=== PATIENT | female | born 1950 | race Caucasian/White ===

== ENCOUNTER → 2018-03-02 09:54 | Outpatient (CLI) | payer MEDICARE, BC ==
[~2018-03-02 09:54] MED LIST: CENTRUM SILVER1 EAC3 PO; CHONDROITIN PO; FLUTICASONE PRO16 GM NASAL; GLUCOSAMINE HC500 MG PO; MAG-OXIDE400 MG PO; MAXALT10 MG PO; OMEGA-3100 MG PO; POTASSIUM99 M1 PO; SINGULAIR10 MG PO; TIROSINT13 MCG PO; VITAMIN B-121000 MCG PO; VITAMIN D31000 UNI2 PO
== END | disposition home or self-care (01) ==
LOC: D.MRI 09:54
DX: M25.561 Pain in right knee (principal)

== ENCOUNTER 2018-03-17 06:51 | Day surgery (SDC) | payer MEDICARE, BC ==
[~2018-03-17] VITALS: Ht 152.4 cm; Wt 54.4 kg
--- NOTE | ~2018-03-17 | OP ---
PATIENT NAME: ZINA SOLER MEDICAL RECORD: [id number] :50 LOCATION:[place] ADMISSION DATE: SURGEON: FRACISCO RENTERIA DO DATE OF OPERATION: 03/17/2018 PROCEDURE PERFORMED: Right knee arthroscopy with partial medial meniscectomy. PREOPERATIVE DIAGNOSIS: Right knee medial meniscal tear. 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 INDICATIONS: Ms. Soler is a 67-year-old female who has had right knee pain for quite some time. She has been dealing with it. She does exercise daily, but has been starting to be more painful to her with twisting and catching. We got an MRI, which showed a meniscal tear in the posterior horn and it also showed some loss of cartilage. She had x-rays done too, which showed some medial joint line narrowing, however, was not severe [id number]-[id number]. She was informed of the risks and benefits of procedure and the fact that the knee scope may not make her all the way better due to her underlying arthritis. She was understanding to that, but we could hopefully get her meniscal symptoms to go away. She was informed of the risks and benefits of the procedure including infection, bleeding, damage to nerve or vessels, need for further surgery and she was consented for the procedure. SURGEON: Fracisco Renteria DO DESCRIPTION OF THE PROCEDURE: The patient was taken to the operative suite, laid in supine position. Right lower extremity was prepped and draped in sterile fashion. A timeout was performed, everyone was in agreement with the correct side, site, and patient. The patient was given 2 grams Ancef preoperatively. Once this was done, the timeout was performed. The procedure began with an 11-blade scalpel and then over the medial portal, which had been injected prior to this with 0.5% Marcaine with epinephrine, 3 mL lateral and medial where portal sites would be. After the portal site was established with an 11-blade scalpel, a trocar was entered to the knee and the knee was inspected and no loose bodies were seen in the suprapatellar pouch; however, the grade III chondromalacia was noted on the lateral side of the patella. No loose bodies seen in the lateral or medial gutters. The medial compartment was then entered and the knee was flexed down. Medial portal was established with an 18-gauge spinal needle and an 11-blade scalpel. Trocar was entered near the end of the probe. The meniscus was probed and seen to have a tear in the posterior horn. A biter was used to bite out the tear and a shaver to take out the pieces and chew back to a stable position. The chondromalacia was noted on the medial femoral condyle and the tibial plateau at that time. Any loose bodies of the cartilage were removed with the shaver at that time. The ACL was then probed with a probe and seemed to be taut. The lateral compartment was then inspected. The leg was in [id number]-[id number] and no tears were seen in the lateral meniscus. The scope was then entered into the suprapatellar pouch to inspect for loose bodies and none were seen there. There was no chondromalacia seen in the trochlea; however, there was again noted grade III chondromalacia of the patella on the lateral facet. The water was turned off and the suction was turned on. The scope was removed from the knee and the portal sites were closed with 3-0 Monocryl in an inverted interrupted fashion. Steri-Strips, Adaptic and Telfa OPERATIVE REPORT [id number] DORATHY,ZINA DENISE and Tegaderm was placed on the knee. ABD, Webril, and Mario Alberto wrap were then placed on the RUCHI hose stocking was placed up to the knee. The patient was awakened and taken to recovery in stable condition. ESTIMATED BLOOD LOSS: Minimal. COMPLICATIONS: None. TRANSINT:[id number] Voice Confirmation ID: [id number] DOCUMENT ID: [id number] FRACISCO RENTERIA DO at 0921 CC: [id number] DICTATION DATE: 03/17/18 1150 WIPING CLOTH CUTTER: 03/17/181940 [facility] 03/17/18 [facility] [address] [place] [address]
[2018-03-17 07:10] LABS: HEMATOCRIT 43.4 % (36.0-48.0); HEMOGLOBIN 14.6 g/dL (12-16); MCH 31.8 pg (26.0-34.0); MCHC 33.6 g/dL (31.0-37.0); MCV 94.6 fL (80.0-100.0); MEAN PLATELET VOLUME 10.3 fL (7.4-10.4); RBC 4.59 10x6/uL (4.00-5.40); RDW 12.3 % (11.5-14.5)
[2018-03-17 08:24] VITALS: BP 130/67; Ht 152.4 cm; Wt 54.4 kg
[2018-03-17] MEDS ORDERED: HYDROCODON-ACE1 EAC7 PO (11:39)
== END 2018-03-17 14:03 | disposition home or self-care (01) ==
LOC: D.PAN 06:51 → D.OPS 09:45 → D.PAN 09:45
PROVIDERS: Anesthesiology
DX: S83.241A Other tear of medial meniscus, current injury, right knee, initial encounter (principal); X58.XXXA Exposure to other specified factors, initial encounter; M22.41 Chondromalacia patellae, right knee; Z87.891 Personal history of nicotine dependence

== ENCOUNTER → 2019-01-04 11:55 | Outpatient (CLI) | payer MEDICARE, BC ==
[2018-03-17 08:24] VITALS: BMI 23.4
[~2019-01-04 11:55] MED LIST changes: +ELIQUIS2.5 MG PO; +HYDROCODON-ACE1 EAC7 PO; +KEFLEX500 MG PO; +LUTEIN20 MG PO; +NEXIUM20 MG PO; +ZOFRAN ODT4 MG/UDTAB PO
== END | disposition home or self-care (01) ==
LOC: D.LABREF 11:55
PROVIDERS: ATTEND Orthopaedic Surgery
DX: M17.11 Unilateral primary osteoarthritis, right knee (principal); Z11.8 Encounter for screening for other infectious and parasitic diseases

== ENCOUNTER 2019-01-04 16:30 | Inpatient (IN) | payer MEDICARE, BC ==
[~2019-01-04] VITALS: Ht 152.4 cm; Wt 55.9 kg
[~2019-01-04 16:30] MED LIST changes: -ELIQUIS2.5 MG PO; -KEFLEX500 MG PO; -LUTEIN20 MG PO; -NEXIUM20 MG PO; -ZOFRAN ODT4 MG/UDTAB PO
[2019-01-09] MEDS ORDERED: LUTEIN20 MG PO (12:37)
[2019-01-09] MEDS ORDERED: NEXIUM20 MG PO (12:51)
[2019-01-10 08:59] LABS: CALC OSMOLALITY 282 mosm/kg (275-300); CALCIUM 8.8 mg/dL (8.5-10.1); CARBON DIOXIDE 31.4 mmol/L (21.0-32.0); CHLORIDE - SERUM 103 mmol/L (98-107); CREATININE - SERUM 0.8 mg/dL (0.6-1.3); GLUCOSE 95 mg/dL (74-106); POTASSIUM - SERUM 4.2 mmol/L (3.5-5.1); SODIUM 141 mmol/L (136-145); UREA NITROGEN 19 mg/dL (7-18); eGFR NON AFRICAN AMERICAN 75 mL/min (90-120)
[2019-01-10 09:00] LABS: APTT 26.8 SECONDS (22.8-39.4); INR 0.99 (0.85-1.17); PROTIME 12.6 SECONDS (11.6-15.0)
[2019-01-10 09:17] LABS: APPEARANCE CLEAR (CLEAR); BILIRUBIN NEGATIVE (NEGATIVE); COLOR YELLOW (YELLOW); GLUCOSE NEGATIVE (NEGATIVE); KETONE NEGATIVE (NEGATIVE); NITRITE NEGATIVE (NEGATIVE); PROTEIN NEGATIVE (NEGATIVE); SPECIFIC GRAVITY 1.005 (1.005-1.020); UROBILINOGEN NORMAL (NORMAL)
[2019-01-10 09:50] LABS: BASOPHILS 0.4 % (0-2); EOSINOPHILS 1.4 % (0-7); HEMATOCRIT 41.9 % (36.0-48.0); HEMOGLOBIN 14.7 g/dL (12-16); LYMPHOCYTES 29.5 % (15-50); MCH 32.5 pg (26.0-34.0); MCHC 35.1 g/dL (31.0-37.0); MCV 92.5 fL (80.0-100.0); MEAN PLATELET VOLUME 10.9 fL (7.4-10.4); MONOCYTES 8.5 % (2-11); NEUTROPHILS 60.2 % (40-80); PLATELET COUNT 201 10x3/uL (130-400); RBC 4.53 10x6/uL (4.00-5.40); RDW 12.5 % (11.5-14.5); WBC 4.8 10x3/uL (4.8-10.8)
[2019-01-16] VITALS (10 sets, daily range): BP systolic 106–142; BP diastolic 42–72; Ht 152.4 cm; Wt 55.9 kg
--- NOTE | 2019-01-16 09:27 | NUR ---
0982 DR. DEXTER GARCIAS.
--- NOTE | 2019-01-16 14:37 | NUR ---
PLAZMA BLADE USED 6 AND 8 ELECTRODE PAD PLACED ON LEFT THIGH KNEE WAS IRIGATED WITH BACTISURE ROOM TRAFIC WAS KEPT TO MINUMEM
[2019-01-17 01:11] VITALS: BP 101/52
--- NOTE | 2019-01-17 01:23 | NUR ---
PT RESTING IN BED. EYES CLOSED. NO SIGNS OF DISTRESS. BREATHING EVEN AND UNALABORED. IV SITE LT FA DRESSING CLEAN DRY AND ITNACT. NO SIGNS OF INFECTION. BOWEL SOUNDS ACTIVE. RT KNEE DRESSING CLEAN DRY AND INTACT. WILL CONTINUE PLAN OF CARE. CALL LIGHT IN REACH. BED LOWERED AND LOCKED. BED RAILS UP X2.
--- NOTE | 2019-01-17 04:23 | NUR ---
I have reviewed this patient and I concur with the Shift Assessment completed by the Licensed Practical Nurse today this shift.
[2019-01-17 05:18] VITALS: BP 95/54
[2019-01-17 07:12] LABS: HEMATOCRIT 37.7 % (36.0-48.0); HEMOGLOBIN 12.8 g/dL (12-16); MCH 31.2 pg (26.0-34.0); MEAN PLATELET VOLUME 11.1 fL (7.4-10.4); RBC 4.1 10x6/uL (4.00-5.40); RDW 12.4 % (11.5-14.5); WBC 7.3 10x3/uL (4.8-10.8)
--- NOTE | 2019-01-17 07:51 | NUR ---
PT IS RESTING IN BED WITH EYES OPEN. RESPIRATIONS ARE EVEN AND UNLABORED. CPM MACHINE IS ON. PT DENIES PRESENCE OF PAIN. PT REPORTS FEELING TO RLE. DENIES PRESENCE OF NUMBNESS/TINGLING. PT IS AAO X4. BED IS IN THE LOWEST POSITION. CALL LIGHT AND BEDSIDE TABLE ARE WITHIN REACH. PT DENIES PRESENCE OF N/V. PT DENIES FURTHER NEEDS. WILL CONT TO MONITOR.
--- NOTE | 2019-01-17 08:48 | OP ---
PATIENT NAME: ZINA SOLER MEDICAL RECORD: [id number] :50 LOCATION:[id number] ADMISSION DATE:01/16/19 SURGEON: FRACISCO RENTERIA DO DATE OF OPERATION: 01/16/2019 PROCEDURE PERFORMED: Right total knee arthroplasty. PREOPERATIVE DIAGNOSIS: Right knee osteoarthritis. POSTOPERATIVE DIAGNOSIS: Right knee osteoarthritis. INDICATIONS: Ms. Soler is a 68-year-old female who has had right knee pain and arthritis for quite some time. She had knee scope done a year or so ago, which demonstrated the knee arthritis. She has been wearing an professional nursing tutor brace and it did help to a point, however, she was tired of dealing with the pain and affecting her activities of daily living and wanted something done. She was aware of the risks including infection, bleeding, damage to nerves and vessels, blood clots, even , fracture, need for further surgery, failure of implants and infection. She has signed the consent. SURGEON: Fracisco Renteria DO DESCRIPTION OF THE PROCEDURE: The patient received a block by anesthesia in the preoperative area and was taken to the operative suite, laid in the supine position, given general anesthetic and LMA was placed. She was given a gram of Ancef and 80 mg of gentamicin. The right lower extremity was then prepped and draped in sterile fashion. Timeout was performed and everyone was in agreement as to the correct side, site, patient and procedure. She was given a gram of TXA. Incision then began over the knee after being covered in Ioban down to the capsule. Medial parapatellar approach was used to go through the capsule. The patella was then everted and milled down and some of the fat pad was removed. The intramedullary guide was then used on the distal femur. The distal femur was then cut. Proximal tibia was cut. The menisci were removed and the extension block was put in and fit well. The knee was then flexed out. The knee was measured to be a 60. The 4-in-1 cutting block was then put on and Jarod wing was used to ensure that it did not notch. This was then cut and then the trial was placed and the tibia was floated in and ranged and marked for rotation. The patella was then drilled as well as the lug holes for the femur. The trials were all removed. The tibia was then exposed and sized to be 63 and 63 was then reamed and punched and extra holes were put in the proximal tibia for the cement. Cement was then put on the implant and the tibia and the tibial implant was packed into place. Excess cement was removed. The femur was then press fit and impacted on. The trial poly was put in between them. The knee was brought to extension. Cement was then put on after the holes have been cleared and the patella was put in the patellar end on the patellar implant and squeezed into place and held into place. Excess cement was removed. The knee was then thoroughly irrigated with 3 liters normal saline and then a liter of Bactisure and then another liter and a half of normal saline and it was then sized when the cement dried and trialed and a #14 poly anterior stabilized E1 poly was put in and locked into place. Logan and vancomycin and tobramycin powder put in the knee. The capsule was then closed with #2 Ethibond in a OPERATIVE REPORT [id number] ZINA SOLER mfizrc-iq-blkey fashion and the skin and then a 2-0 Vicryl in an inverted interrupted fashion. ZipLine placed on the knee. Adaptic, 4 x 4s, ABD, Webril, Mario Alberto wrap, RUCHI stocking then placed up to the knee. The patient was then awakened and taken to recovery in stable condition. Blood loss was approximately 200 mL. COMPLICATIONS: None. TRANSINT:[id number] Voice Confirmation ID: [id number] DOCUMENT ID: [id number] FRACISCO RENTERIA DO at 0848 CC: [id number] DICTATION DATE: 01/16/19 1442 MENTAL HYGIENIST: 01/17/19 0014 ADM IN [facility] [address] [place] [id number]
[2019-01-17 09:03] VITALS: BP 92/40
[2019-01-17 17:10] VITALS: BP 124/55
[2019-01-17 21:53] VITALS: BP 128/47
[2019-01-18 00:25] VITALS: BP 124/45
--- NOTE | 2019-01-18 04:29 | NUR ---
PT RESTING IN BED. EYES CLOSED. NO SIGNS OF DISTRESS. BREATHING EVEN AND UNLABORED. IV SITE LT FA DRESSING CLEAN DRY AND INTACT. NO SIGNS OF INFECTION. BOWEL SOUNDS ACTIVE. RT KNEE DRESSING CLEAN DRY AND INTACT. WILL CONTINUE PLAN OF CARE. CALL LIGHT IN REACH. BED LOWERED AND LOCKED. BED RAILS UPX.2
[2019-01-18 05:16] VITALS: BP 121/57
[2019-01-18 06:02] LABS: BASOPHILS 0.1 % (0-2); EOSINOPHILS 0.1 % (0-7); HEMATOCRIT 34.6 % (36.0-48.0); HEMOGLOBIN 11.9 g/dL (12-16); IMMATURE GRANULOCYTES 0.3 % (0-5); LYMPHOCYTES 11.1 % (15-50); MCH 31.3 pg (26.0-34.0); MCHC 34.4 g/dL (31.0-37.0); MCV 91.1 fL (80.0-100.0); MEAN PLATELET VOLUME 11.6 fL (7.4-10.4); MONOCYTES 12.4 % (2-11); PLATELET COUNT 140 10x3/uL (130-400); RDW 12.3 % (11.5-14.5); WBC 7.8 10x3/uL (4.8-10.8)
[2019-01-18 06:25] LABS: CALC OSMOLALITY 283 mosm/kg (275-300); CALCIUM 8.6 mg/dL (8.5-10.1); CARBON DIOXIDE 31.7 mmol/L (21.0-32.0); CHLORIDE - SERUM 106 mmol/L (98-107); CREATININE - SERUM 0.8 mg/dL (0.6-1.3); GLUCOSE 112 mg/dL (74-106); POTASSIUM - SERUM 4.1 mmol/L (3.5-5.1); SODIUM 143 mmol/L (136-145); UREA NITROGEN 8 mg/dL (7-18); eGFR NON AFRICAN AMERICAN 75 mL/min (90-120)
--- NOTE | 2019-01-18 07:33 | NUR ---
PT IS RESTING IN BED WITH EYES OPEN. TALKING ON TELEPHONE. RESPIRATIONS ARE EVEN AND UNLABORED. CPM MACHINE IS ON. PT REPORTS PAIN. WILL ADDRESS. SEE EMAR. PT DENIES PRESENCE OF N/V. SCOPALIMINE PATCH TO BEHIND RIGHT EAR. PIV TO LEFT FA IS INFUSING WITHOUT DIFFICULTY. BED IS IN THE LOWEST POSITION. CALL LIGHT AND BEDSIDE TABLE ARE WITHIN REACH. PT DENIES FURTHER NEEDS. WILL CONT TO MONITOR.
--- NOTE | 2019-01-18 07:33 | NUR ---
PT IS RESTING IN BED WITH EYES OPEN. RESPIRATIONS ARE EVEN AND UNLABORED. CPM MACHINE IS ON. PT REPORTS PRESENCE OF SLIGHT NAUSEA, DENIES NEEDS AT THIS TIME. DRESSING TO RIGHT KNEE IS CDI. PT REPORTS PAIN 5/10. WILL ADDRESS AT PT REQUEST. BED IS IN THE LOWEST POSITION. CALL LIGHT AND BEDSIDE TABLE ARE WITHIN REACH. SIDE RAILS X 2. PT DENIES FURTHER NEEDS. WILL CONT TO MONITOR.
[2019-01-18 07:53] VITALS: BP 130/54
[2019-01-18 12:30] VITALS: BP 115/65
--- NOTE | 2019-01-18 14:47 | MORECARE ---
CASE MANAGEMENT DISCHARGE SUMMARY PATIENT: ZINA CLARK UNIT: [id number] ADM DATE: 01/16/19 AGE: 68 : 50 SEX: F ROOM/BED: D.2213 AUTHOR: VICKI CANCHOLA PHYSICIAN: REFERRING PHYSICIAN: MARTHA RENTERIA DO DATE OF SERVICE: 01/18/19 Discharge Plan Patient Name: ZINA CLARK Facility: [facility]:[place] : 1950 Planned Disposition: Home or Self Care Anticipated Discharge Date: Discharge Date: Expected LOS: Initial Reviewer: [email or web address] Initial Review Date: 01/16/2019 Generated: 01/18/19 3:47 pm DCPIA - Discharge Planning Initial Assessment Updated by [email or web address]: Josie Isbell on 01/18/19 2:43 pm * Is the patient Alert and Oriented? Yes * How many steps to enter\exit or inside your home? * PCP LIANA MARTIN * Pharmacy [facility] * Preadmission Environment Home Alone * ADLs Independent * Equipment Bedside Commode Rolling Walker Walker * Other Equipment CPM ICE MACHINE * List name and contact numbers for known caregivers / representatives who currently or will assist patient after discharge: DEREK ALLEN [phone] * Verbal permission to speak to the caregivers and representatives has been obtained from the patient. Yes * Community resources currently utilized None * Additional services required to return to the preadmission environment? Yes * Can the patient safely return to the preadmission environment? Yes * Has this patient been hospitalized within the prior 30 days at any hospital? No Coverage Notice Reviewer: [id number] - Josie Isbell Notice Issued Date-Time: 01/18/2019 13:50 Notice Type: IM Discharge Notice Notice Delivered To: Patient Relationship to Patient: Track Car Operator Name: Delivery Method: HAND - Hand Delivered Chanel Days: Prior Verbal Notification: Recipient Understood Notice: Yes Recipient Signature: Yes Med Rec Note Co-signed by Attending: Coverage Notice Comment: Patient Name: ZINA CLARK Page [phone] at 1447 All edits/amendments must be made on the electronic document DICTATION DATE: 01/18/191445 SALES REPRESENTATIVE PRINTING PAPER: CLARE 01/18/191445 RPT#: [id number] DC DATE: STATUS: ADM IN [facility] [address] [place] [address] END OF REPORT
--- NOTE | 2019-01-18 14:57 | MORECARE ---
CASE MANAGEMENT DISCHARGE SUMMARY PATIENT: ZINA CLARK UNIT: [id number] ADM DATE: 01/16/19 AGE: 68 : 50 SEX: F ROOM/BED: D.2213 AUTHOR: VICKI CANCHOLA PHYSICIAN: REFERRING PHYSICIAN: MARTHA RENTERIA DO DATE OF SERVICE: 01/18/19 Discharge Plan Patient Name: ZINA CLARK Facility: [facility]:[place] : 1950 Planned Disposition: Home or Self Care Anticipated Discharge Date: Discharge Date: Expected LOS: Initial Reviewer: [email or web address] Initial Review Date: 01/16/2019 Generated: 01/18/19 3:57 pm Comments DCP- Discharge Planning Updated by [email or web address]: Josie Isbell on 01/18/19 1:[address] Patient Name: ZINA CLARK Admission Status: Elective Accout number: [id number] Admission Date: 01-16-2019 : 1950 Admission Diagnosis:UNILATERAL PRIMARY OSTEOARTHRITIS, RIGHT KNEE Attending: MARTHA RENTERIA Current LOS: 2 Anticipated DC Date: Planned Disposition: Home or Self Care Primary Insurance: MEDICARE A & B Discharge Planning Comments: CM met with patient to complete initial dc planning assessment. CM educated patient on the CM role and verbal consent given by patient to complete assessment. Patient lives at home where she is independent with her care. At discharge patient plans to return home and feels this is a safe discharge. Her sister and brother in law will be staying with her a week or so while she is recovering and she has made arrangements for her neighbor to take her to and from OP PT. CM discussed availability of home health, rehab services, and medical equipment. She has a walker, BSC, CPM, and Ice machine that was all delivered prior to surgery. IMM served and explained. She would like to do her OP PT at [facility] OP rehab center. I called and left a message for them to call me back so I could make her appointment. Patient denied known discharge needs at this time. CM will continue to follow and will assist as needed with dc plans/needs. [employer] Industrial Arts Teacher: Josie Isbell DCPIA - Discharge Planning Initial Assessment Updated by [email or web address]: Josie Isbell on 01/18/19 2:43 pm * Is the patient Alert and Oriented? Yes * How many steps to enter\exit or inside your home? * PCP LIANA MARTIN * Pharmacy [facility] * Preadmission Environment Home Alone * ADLs Independent * Equipment Bedside Commode Rolling Walker Walker * Other Equipment CPM ICE MACHINE * List name and contact numbers for known caregivers / representatives who currently or will assist patient after discharge: DEREK ALLEN [phone] * Verbal permission to speak to the caregivers and representatives has been obtained from the patient. Yes * Community resources currently utilized None * Additional services required to return to the preadmission environment? Yes * Can the patient safely return to the preadmission environment? Yes * Has this patient been hospitalized within the prior 30 days at any hospital? No Coverage Notice Reviewer: [id number] - Josie Isbell Notice Issued Date-Time: 01/18/2019 13:50 Notice Type: IM Discharge Notice Notice Delivered To: Patient Relationship to Patient: Principal Planner Name: Delivery Method: HAND - Hand Delivered Chanel Days: Prior Verbal Notification: Recipient Understood Notice: Yes Recipient Signature: Yes Med Rec Note Co-signed by Attending: Coverage Notice Comment: Last DP export: 01/18/19 1:47 p Patient Name: ZINA CLARK Page [phone] at 1457 All edits/amendments must be made on the electronic document DICTATION DATE: 01/18/191456 BUSINESS CONTINUITY PLANNING DIRECTOR: CLARE 01/18/191456 RPT#: [id number] DC DATE: STATUS: ADM IN [facility] [address] [place] [address] END OF REPORT
--- NOTE | 2019-01-18 15:15 | MORECARE ---
CASE MANAGEMENT DISCHARGE SUMMARY PATIENT: ZINA CLARK UNIT: [id number] ADM DATE: 01/16/19 AGE: 68 : 50 SEX: F ROOM/BED: D.2213 AUTHOR: VICKI CANCHOLA PHYSICIAN: REFERRING PHYSICIAN: MARTHA RENTERIA DO DATE OF SERVICE: 01/18/19 Discharge Plan Patient Name: ZINA CLARK Facility: [facility]:[place] : 1950 Planned Disposition: Home or Self Care Anticipated Discharge Date: Discharge Date: Expected LOS: Initial Reviewer: [id number] Initial Review Date: 01/16/2019 Generated: 01/18/19 4:15 pm Comments DCP- Discharge Planning Updated by [email or web address]: Josie Isbell on 01/18/19 2:[address] Consuelo with [facility] PT called back and set the appointment up for TuesdayJan 22 @ 2:30 DCP- Discharge Planning Updated by [email or web address]: Josie Isbell on 01/18/19 1:[address] Patient Name: ZINA CLARK Admission Status: Elective Accout number: [id number] Admission Date: 01-16-2019 : 1950 Admission Diagnosis:UNILATERAL PRIMARY OSTEOARTHRITIS, RIGHT KNEE Attending: MARTHA RENTERIA Current LOS: 2 Anticipated DC Date: Planned Disposition: Home or Self Care Primary Insurance: MEDICARE A & B Discharge Planning Comments: CM met with patient to complete initial dc planning assessment. CM educated patient on the CM role and verbal consent given by patient to complete assessment. Patient lives at home where she is independent with her care. At discharge patient plans to return home and feels this is a safe discharge. Her sister and brother in law will be staying with her a week or so while she is recovering and she has made arrangements for her neighbor to take her to and from OP PT. CM discussed availability of home health, rehab services, and medical equipment. She has a walker, BSC, CPM, and Ice machine that was all delivered prior to surgery. IMM served and explained. She would like to do her OP PT at [facility] OP rehab center. I called and left a message for them to call me back so I could make her appointment. Patient denied known discharge needs at this time. CM will continue to follow and will assist as needed with dc plans/needs. Home Health Clinician: Josie Isbell DCPIA - Discharge Planning Initial Assessment Updated by [email or web address]: Josie Isbell on 01/18/19 2:43 pm * Is the patient Alert and Oriented? Yes * How many steps to enter\exit or inside your home? * PCP LIANA MARTIN * Pharmacy [facility] * Preadmission Environment Home Alone * ADLs Independent * Equipment Bedside Commode Rolling Walker Walker * Other Equipment CPM ICE MACHINE * List name and contact numbers for known caregivers / representatives who currently or will assist patient after discharge: DEREK ALLEN [phone] * Verbal permission to speak to the caregivers and representatives has been obtained from the patient. Yes * Community resources currently utilized None * Additional services required to return to the preadmission environment? Yes * Can the patient safely return to the preadmission environment? Yes * Has this patient been hospitalized within the prior 30 days at any hospital? No Coverage Notice Reviewer: [id number] - Josie Isbell Notice Issued Date-Time: 01/18/2019 13:50 Notice Type: IM Discharge Notice Notice Delivered To: Patient Relationship to Patient: Supervisor Hydrochloric Area Name: Delivery Method: HAND - Hand Delivered Chanel Days: Prior Verbal Notification: Recipient Understood Notice: Yes Recipient Signature: Yes Med Rec Note Co-signed by Attending: Coverage Notice Comment: Last DP export: 01/18/19 1:58 p Patient Name: ZINA CLARK Page [phone] at 1515 All edits/amendments must be made on the electronic document DICTATION DATE: 01/18/191514 FLAME DEGREASER: CLARE 01/18/19 151 RPT#: [id number] DC DATE: STATUS: ADM IN [facility] [address] [place] [address] END OF REPORT
[2019-01-18 17:49] VITALS: BP 122/74
--- NOTE | 2019-01-18 19:00 | NUR ---
BEDSIDE REPORT RECEIVED AND CARE OF PT ASSUMED. PT LYING IN SUPINE POSITION WITH RIGHT LEG IN CPM THERAPY. IV TO RIGHT WRIST PATENT WITH ZOFRAN INFUSING AT 4.7 ML/HR. WILL MONITOR FOR NEEDS.
--- NOTE | 2019-01-18 20:25 | NUR ---
HS MEDICATIONS GIVEN TO INCLUDE TORADOL IVP FOR PAIN, PER PRN ORDER. WILL CONTINUE TO MONITOR FOR NEEDS.
[2019-01-18 21:26] VITALS: BP 125/82
[2019-01-19 00:35] VITALS: BP 123/58
--- NOTE | 2019-01-19 03:00 | NUR ---
PT REQUESTING TO HAVE IV ZOFRAN DISCONTINUED AND TO HAVE IV REMOVED. REMOVED IV WITH CATHETER TIP INTACT. PRESSURE DRESSING APPLIED. EXPLAINED TO PT THAT IF SHE NEEDED IV MEDS THAT IV WOULD HAVE TO BE RE-SITED....PT ANTICIPATING DISCHARGING THIS AM.
[2019-01-19 05:07] VITALS: BP 132/55
[2019-01-19 06:11] LABS: BASOPHILS 0.2 % (0-2); EOSINOPHILS 0.7 % (0-7); HEMATOCRIT 35.3 % (36.0-48.0); HEMOGLOBIN 12.1 g/dL (12-16); IMMATURE GRANULOCYTES 0.2 % (0-5); LYMPHOCYTES 11.1 % (15-50); MCH 31.3 pg (26.0-34.0); MCHC 34.3 g/dL (31.0-37.0); MCV 91.5 fL (80.0-100.0); MEAN PLATELET VOLUME 11.3 fL (7.4-10.4); MONOCYTES 13.6 % (2-11); NEUTROPHILS 74.2 % (40-80); PLATELET COUNT 131 10x3/uL (130-400); RBC 3.86 10x6/uL (4.00-5.40); RDW 12.4 % (11.5-14.5); WBC 6.1 10x3/uL (4.8-10.8)
[2019-01-19 06:44] LABS: CALC OSMOLALITY 274 mosm/kg (275-300); CALCIUM 8.7 mg/dL (8.5-10.1); CARBON DIOXIDE 31.5 mmol/L (21.0-32.0); CHLORIDE - SERUM 101 mmol/L (98-107); CREATININE - SERUM 0.8 mg/dL (0.6-1.3); GLUCOSE 100 mg/dL (74-106); POTASSIUM - SERUM 3.6 mmol/L (3.5-5.1); SODIUM 138 mmol/L (136-145); UREA NITROGEN 9 mg/dL (7-18); eGFR NON AFRICAN AMERICAN 75 mL/min (90-120)
--- NOTE | 2019-01-19 07:18 | NUR ---
PT SITTING UP IN BED AWAKE, ALERT AND ORIENTED WITH NO S/S OF DISTRESS. NO IV PRESENT. PATIENT DENIES NEEDS OTHER THAN WANTING A CUP OF COFFEE. WILL CONT TO MONITOR.
[2019-01-19] MEDS ORDERED: HYDROCODON-ACE1 EAC7 PO (08:19)
[2019-01-19] MEDS ORDERED: KEFLEX500 MG PO (08:20)
[2019-01-19] MEDS ORDERED: ELIQUIS2.5 MG PO (08:20)
[2019-01-19] MEDS ORDERED: ZOFRAN ODT4 MG/UDTAB PO (08:23)
[2019-01-19 08:30] VITALS: BP 124/52
--- NOTE | 2019-01-19 08:46 | NUR ---
DRESSING CHANGED PER ORDERS.
--- NOTE | 2019-01-19 11:26 | NUR ---
DCD HOME WITH FAMILY VIA WHEELCHAIR.
--- NOTE | 2019-01-19 11:42 | MORECARE ---
CASE MANAGEMENT DISCHARGE SUMMARY PATIENT: ZINA CLARK UNIT: [id number] ADM DATE: 01/16/19 AGE: 68 : 50 SEX: F ROOM/BED: D.2213 AUTHOR: VICKI CANCHOLA PHYSICIAN: REFERRING PHYSICIAN: MARTHA RENTERIA DO DATE OF SERVICE: 01/19/19 Discharge Plan Patient Name: ZINA CLARK Facility: [facility]:[place] : 1950 Planned Disposition: Home or Self Care Anticipated Discharge Date: Discharge Date: 01/19/2019 Expected LOS: 0 Initial Reviewer: [email or web address] Initial Review Date: 01/16/2019 Generated: 01/19/19 12:42 pm Comments DCP- Discharge Planning Updated by [email or web address]: Josie Isbell on 01/19/19 10:[address] Patient Name: ZINA CLARK Encounter No: [id number] : 1950 Primary Insurance: MEDICARE A & B Anticipated DC Date: Planned Disposition: Home or Self Care External Planned Provider: : DCP follow-up note: Patient and family in agreement with discharge plan. No changes to plan. Case management will follow and assist as needed. Josie Isbell DCP- Discharge Planning Updated by [email or web address]: Josie Isbell on 01/18/19 2:[address] Consuelo with [facility] called back and set the appointment up for TuesdayJan 22 @ 2:30 DCP- Discharge Planning Updated by [email or web address]: Josie Isbell on 01/18/19 1:[address] Patient Name: ZINA CLARK Admission Status: Elective Accout number: [id number] Admission Date: 01-16-2019 : 1950 Admission Diagnosis:UNILATERAL PRIMARY OSTEOARTHRITIS, RIGHT KNEE Attending: MARTHA RENTERIA Current LOS: 2 Anticipated DC Date: Planned Disposition: Home or Self Care Primary Insurance: MEDICARE A & B Discharge Planning Comments: CM met with patient to complete initial dc planning assessment. CM educated patient on the CM role and verbal consent given by patient to complete assessment. Patient lives at home where she is independent with her care. At discharge patient plans to return home and feels this is a safe discharge. Her sister and brother in law will be staying with her a week or so while she is recovering and she has made arrangements for her neighbor to take her to and from OP PT. CM discussed availability of home health, rehab services, and medical equipment. She has a walker, BSC, CPM, and Ice machine that was all delivered prior to surgery. IMM served and explained. She would like to do her OP PT at [facility]. I called and left a message for them to call me back so I could make her appointment. Patient denied known discharge needs at this time. CM will continue to follow and will assist as needed with dc plans/needs. Milk Condenser: Josie Isbell DCPIA - Discharge Planning Initial Assessment Updated by [email or web address]: Josie Isbell on 01/18/19 2:43 pm * Is the patient Alert and Oriented? Yes * How many steps to enter\exit or inside your home? * PCP LIANA MARTIN * Pharmacy [facility] * Preadmission Environment Home Alone * ADLs Independent * Equipment Bedside Commode Rolling Walker Walker * Other Equipment CPM ICE MACHINE * List name and contact numbers for known caregivers / representatives who currently or will assist patient after discharge: DEREK ALLEN [phone] * Verbal permission to speak to the caregivers and representatives has been obtained from the patient. Yes * Community resources currently utilized None * Additional services required to return to the preadmission environment? Yes * Can the patient safely return to the preadmission environment? Yes * Has this patient been hospitalized within the prior 30 days at any hospital? No Coverage Notice Reviewer: [id number] - Josie Isbell Notice Issued Date-Time: 01/18/2019 13:50 Notice Type: IM Discharge Notice Notice Delivered To: Patient Relationship to Patient: Screen Making Supervisor Name: Delivery Method: HAND - Hand Delivered Chanel Days: Prior Verbal Notification: Recipient Understood Notice: Yes Recipient Signature: Yes Med Rec Note Co-signed by Attending: Coverage Notice Comment: Last DP export: 01/18/19 2:15 p Patient Name: ZINA CLARK Page [id number] at 1142 All edits/amendments must be made on the electronic document DICTATION DATE: 01/19/19 1141 EQUALIZER OPERATOR: CLARE 01/19/19 1141 RPT#: [id number] DC DATE:01/19/19 STATUS: DIS IN [facility] [address] [place] [address] END OF REPORT
== END 2019-01-19 11:27 | disposition home or self-care (01) | DRG 470 ==
LOC: D.MS 01-16 07:10 → D.SDCHOLD 01-16 07:10 → D.MS 01-16 15:27
PROVIDERS: Internal Medicine Nephrology; ADMIT Orthopaedic Surgery; ATTEND Orthopaedic Surgery
PROC: 0SRC0J9 Replacement of Right Knee Joint with Synthetic Substitute, Cemented, Open Approach (ICD-10-PCS; principal; 2019-01-16 10:45)
DX: M17.11 Unilateral primary osteoarthritis, right knee (principal); E03.9 Hypothyroidism, unspecified; K21.9 Gastro-esophageal reflux disease without esophagitis; R11.0 Nausea